=== PATIENT | male | born 1950 | race Caucasian/White ===

== ENCOUNTER → 2018-08-27 | Outpatient (CLI) | payer OTHER, MEDICARE ==
[~2018-08-27] MED LIST: IOPAMIDOL (ISOVUE-300) 100 ML BTL ONE
== END ==
LOC: FIMAGING 12:42
PROVIDERS: ATTEND Dermatology
DX: R59.0 Localized enlarged lymph nodes (principal); R23.8 Other skin changes; K44.9 Diaphragmatic hernia without obstruction or gangrene; C43.9 Malignant melanoma of skin, unspecified
CPT/HCPCS: 70470; 70491; 71260; 74177; Q9967